=== PATIENT | male | born 1945 | race Caucasian/White ===

== ENCOUNTER → 2016-05-29 | Day surgery (SDC) | payer MEDICARE, OTHER ==
[~2016-05-29] MED LIST: LISINOPRIL40 MG PO; NORVASC5 MG PO; PERCOCET 10-321 EACH PO; XARELTO10 MG PO; ZOCOR20 MG PO; ZOCOR40 MG PO
[2016-05-29 10:11] LABS: HEMOGLOBIN 15.1 gm/dl (14.0-17.5); RED BLOOD COUNT 4.74 M/UL (4.20-5.50); WHITE BLOOD COUNT 6.8 K/UL (4.5-11.0)
[2016-05-29 10:31] LABS: BUN/CREATININE RATIO 21 (0-10)
== END | disposition home or self-care (01) ==
LOC: OPSV2 09:25
PROVIDERS: Orthopaedic Surgery
DX: Z01.810 Encounter for preprocedural cardiovascular examination (principal); Z01.812 Encounter for preprocedural laboratory examination; Z01.818 Encounter for other preprocedural examination; M17.12 Unilateral primary osteoarthritis, left knee; I12.9 Hypertensive chronic kidney disease with stage 1 through stage 4 chronic kidney disease, or unspecified chronic kidney disease; N18.3 Chronic kidney disease, stage 3 (moderate)
CPT/HCPCS: 36415; 71020; 80048; 85025; 87081; 93005

== ENCOUNTER → 2016-06-11 | Outpatient (CLI) | payer OTHER, MEDICARE | LOC: LAB 11:07 | DX: Z01.812 Encounter for preprocedural laboratory examination (principal) | CPT/HCPCS: 36415; 80051; 82565; 84520; 86850; 86900; 86901 ==

== ENCOUNTER 2016-06-12 05:33 | Observation (INO) | payer MEDICARE, OTHER ==
[~2016-06-12] VITALS: Ht 167.6 cm; Wt 81.6 kg
[2016-06-12] MEDS ORDERED: LISINOPRIL40 MG PO (06:39)
[2016-06-12] MEDS ORDERED: NORVASC5 MG PO (06:39)
[2016-06-12] MEDS ORDERED: ZOCOR40 MG PO (06:40)
[2016-06-13 06:00] LABS: HEMOGLOBIN 13.1 gm/dl (14.0-17.5); RED BLOOD COUNT 4.15 M/UL (4.20-5.50); WHITE BLOOD COUNT 10.1 K/UL (4.5-11.0)
[2016-06-13 06:17] LABS: BUN/CREATININE RATIO 14 (0-10)
[2016-06-13] MEDS ORDERED: PERCOCET 10-321 EACH PO (13:15)
[2016-06-13] MEDS ORDERED: XARELTO10 MG PO (13:16)
[2016-06-13] MEDS ORDERED: ZOCOR20 MG PO (13:51)
== END 2016-06-13 14:40 | disposition home health service (06) ==
LOC: OR 05:33 → EDSTATUS 08:15 → M/S 10:50
PROVIDERS: ADMIT Orthopaedic Surgery
PROC: 0SRD0L9 Replacement of Left Knee Joint with Medial Unicondylar Synthetic Substitute, Cemented, Open Approach (ICD-10-PCS; principal; 2016-06-12 08:15)
DX: M17.12 Unilateral primary osteoarthritis, left knee (principal); I12.9 Hypertensive chronic kidney disease with stage 1 through stage 4 chronic kidney disease, or unspecified chronic kidney disease; N18.3 Chronic kidney disease, stage 3 (moderate); E78.5 Hyperlipidemia, unspecified; M19.90 Unspecified osteoarthritis, unspecified site; N28.1 Cyst of kidney, acquired; Z86.73 Personal history of transient ischemic attack (TIA), and cerebral infarction without residual deficits; Z88.5 Allergy status to narcotic agent; Z79.899 Other long term (current) drug therapy; Z87.891 Personal history of nicotine dependence; E78.00 Pure hypercholesterolemia, unspecified; M54.9 Dorsalgia, unspecified
CPT/HCPCS: 36415; 73560; 80048; 85025; 96365; 96366; 96367; 96375; 96376; 97110; 97116; 97535; C1713; C1776; G0378; J0690; J1100; J2250; J2270; J2405; J2710; J2795; J3010; J3370; J7030; J7120